=== PATIENT | female | born 1995 | race Caucasian/White ===

== ENCOUNTER 2022-07-31 12:14 | Emergency (ER) | payer BC, OTHER ==
[2022-07-31] MEDS ORDERED: Ondansetron PF 4 MG/2 ML Vial ONE ×2 (13:08→14:24)
[2022-07-31] MEDS ORDERED: Ondansetron ODT 4 MG TAB ONE (14:39)
== END 2022-07-31 16:35 | disposition home or self-care (01) ==
LOC: ERS 12:14
DX: J10.1 Influenza due to other identified influenza virus with other respiratory manifestations (principal); K21.9 Gastro-esophageal reflux disease without esophagitis
CPT/HCPCS: 96374; J2405; Q0162